=== PATIENT | male | born 1990 | race African-American/Black ===

== ENCOUNTER 2024-11-22 09:54 | Outpatient (OUT) | payer BC, SELFPAY ==
--- NOTE | 2024-11-22 10:00 | US_ITS ---
The [address] [address] Patient Name: GERI STOKES MRN: [id number] date: 1990 Sex: M Assigned Patient Location: US Current Patient Location: US Accession/Order Number: [id number] Exam Date: 11/22/2024 11:06 Report Date: 11/22/2024 11:07 At the request of: AL DEXTER MD Procedure: US renal BI BILATERAL RENAL AND BLADDER ULTRASOUND CLINICAL HISTORY: History of right sided stone removed 1 month ago COMPARISON: None Estimation of renal size is approximately 9.6 cm on the right and 10.0 cm on the left. No shadowing calculi or hydronephrosis are identified. No renal mass lesions were imaged. There is no perinephric fluid. The urinary bladder is is not well distended with a volume of 32 mL. No obvious contour or intraluminal abnormalities are seen. US/US renal BI IMPRESSION: NO OBSTRUCTIVE UROPATHY. Impression dictated by: Elen Claros M.D.11/22/2024 11:07 AM Dictation Location: [place] [address] Electronically authenticated by: [id number] Y Date: 11/22/2024 11:07
--- NOTE | 2024-11-22 10:01 | XR_ITS ---
The [place] [id number] Patient Name: GERI STOKES MRN: [id number] date: 1990 Sex: M Assigned Patient Location: US Current Patient Location: US Accession/Order Number: [id number] Exam Date: 11/22/2024 11:07 Report Date: 11/22/2024 11:08 At the request of: AL DEXTER MD Procedure: XR abdomen 1V SINGLE VIEW ABDOMEN COMPARISON: None CLINICAL DATA: History of right-sided stone with removal one month ago. Supine views of the abdomen and pelvis were obtained. There is air and stool throughout the colon. There is no dilated small bowel. Both kidneys are obscured. No obvious radiopaque renal or ureteral stones are noted. No soft tissue masses are seen. The bony structures are intact. XR/XR abdomen 1V IMPRESSION: NO OBVIOUS RADIOPAQUE STONES WITHIN LIMITS OF BOWEL GAS AND STOOL. Impression dictated by: Elen Claros M.D.11/22/2024 11:08 AM Dictation Location: [place] [address] Electronically authenticated by: [id number] Y Date: 11/22/2024 11:08
== END 2024-11-22 09:55 | disposition home or self-care (01) ==
LOC: US 09:57
PROVIDERS: Visit Provider Student in an Organized Health Care Education/Training Program
DX: N20.0 Calculus of kidney (principal)
CPT/HCPCS: 74018; 76775